=== PATIENT | male | born 1945 | race Caucasian/White ===

== ENCOUNTER 2016-11-02 09:45 | Emergency (ER) | payer OTHER ==
[2016-11-02 10:30] LABS: HEMOGLOBIN 13.8 gm/dl (14.0-17.5); RED BLOOD COUNT 4.96 M/UL (4.20-5.50); WHITE BLOOD COUNT 6.8 K/UL (4.5-11.0)
[2016-11-02 11:06] LABS: BUN/CREATININE RATIO 21 (0-10)
== END 2016-11-02 13:05 | disposition home or self-care (01) ==
LOC: ER1 09:45
PROVIDERS: Preventive Medicine Occupational Medicine
DX: I50.9 Heart failure, unspecified (principal)
CPT/HCPCS: 36415; 36600; 71010; 80053; 81001; 82550; 82553; 82803; 83874; 83880; 84484; 85025; 85610; 85730; 87040; 93005; 93970; 94664; 96361; 96374; 99285; J1940

== ENCOUNTER 2020-06-05 08:31 | Inpatient (IN) | payer MEDICARE ==
[~2020-06-05] VITALS: Ht 175.3 cm; Wt 104.5 kg
[~2020-06-05 08:31] MED LIST: ASPIRIN EC81 MG PO; ATORVASTATIN CA20 MG PO; BETAPACE 80MG T80 MG PO; COUMADIN5 MG PO; DISALCID500 MG PO; FEOSOL325 MG PO; FISH OIL 1,0001 EACH PO; GLUCOPHAGE1000 MG PO; GLUCOTROL 10 MG10 MG PO; GUAIFENESI100 MG/5 M PO; IMDUR ER TAB 3030 MG PO; LANTUS100 UNIT/1 SQ; LASIX40 MG PO; LOPRESSOR50 MG PO; NEURONTIN 400400 MG PO; ROBAXIN-750750 MG PO; SYMBICORT 80-10.2 GM INH; TYLENOL 500 MG500 MG PO; VITAMIN D31000 UNI1 PO
[2020-06-05 09:11] LABS: HEMOGLOBIN 12.2 gm/dl (14.0-17.5); RED BLOOD COUNT 4.37 M/UL (4.20-5.50); WHITE BLOOD COUNT 6.3 K/UL (4.5-11.0)
[2020-06-05 09:43] LABS: BUN/CREATININE RATIO 28 (0-10)
[2020-06-05] MEDS ORDERED: WARFARIN SODIU2.5 MG PO (10:54)
[2020-06-05] MEDS ORDERED: JANTOVEN5 MG PO (10:56)
[2020-06-05] MEDS ORDERED: ASCORBIC ACID500 MG PO (10:57)
[2020-06-05] MEDS ORDERED: LASIX20 MG PO (10:58)
[2020-06-05] MEDS ORDERED: ZYRTEC10 MG PO (10:58)
[2020-06-05] MEDS ORDERED: REFRESH OPTIVE1 EACH EYEBOTH (10:59)
[2020-06-05] MEDS ORDERED: ARTIFICIAL TEA1 EAC1 EYEBOTH (11:00)
[2020-06-06 03:10] LABS: HEMOGLOBIN 11.2 gm/dl (14.0-17.5); RED BLOOD COUNT 3.98 M/UL (4.20-5.50); WHITE BLOOD COUNT 5.1 K/UL (4.5-11.0)
[2020-06-06 03:50] LABS: BUN/CREATININE RATIO 37 (0-10)
[2020-06-06 18:28] LABS: HEMOGLOBIN 10.9 gm/dl (14.0-17.5); RED BLOOD COUNT 3.82 M/UL (4.20-5.50)
[2020-06-06 18:36] LABS: WHITE BLOOD COUNT 6.7 K/UL (4.5-11.0)
[2020-06-06 18:49] LABS: BUN/CREATININE RATIO 34 (0-10)
[2020-06-07 04:11] LABS: HEMOGLOBIN 8.7 gm/dl (14.0-17.5); RED BLOOD COUNT 3.15 M/UL (4.20-5.50); WHITE BLOOD COUNT 4.4 K/UL (4.5-11.0)
[2020-06-07 04:37] LABS: BUN/CREATININE RATIO 39 (0-10)
[2020-06-08 02:41] LABS: HEMOGLOBIN 7.8 gm/dl (14.0-17.5); WHITE BLOOD COUNT 4.3 K/UL (4.5-11.0)
[2020-06-08 02:56] LABS: RED BLOOD COUNT 2.77 M/UL (4.20-5.50)
--- NOTE | 2020-06-08 15:51 | NUR ---
ON FLOOR AND REQUEST TO HAVE ORDERS PLACED FOR CT AND VIT K
[2020-06-09 05:39] LABS: HEMOGLOBIN 7.7 gm/dl (14.0-17.5); RED BLOOD COUNT 2.71 M/UL (4.20-5.50); WHITE BLOOD COUNT 3.9 K/UL (4.5-11.0)
[2020-06-09 06:05] LABS: BUN/CREATININE RATIO 40 (0-10)
[2020-06-10 05:19] LABS: HEMOGLOBIN 9.3 gm/dl (14.0-17.5); RED BLOOD COUNT 3.35 M/UL (4.20-5.50); WHITE BLOOD COUNT 7.1 K/UL (4.5-11.0)
[2020-06-10 05:50] LABS: BUN/CREATININE RATIO 44 (0-10)
[2020-06-11 03:49] LABS: HEMOGLOBIN 8.5 gm/dl (14.0-17.5); WHITE BLOOD COUNT 5.9 K/UL (4.5-11.0)
[2020-06-11 03:53] LABS: RED BLOOD COUNT 2.93 M/UL (4.20-5.50)
[2020-06-11 04:16] LABS: BUN/CREATININE RATIO 39 (0-10)
[2020-06-12 03:15] LABS: HEMOGLOBIN 8.1 gm/dl (14.0-17.5); RED BLOOD COUNT 2.85 M/UL (4.20-5.50); WHITE BLOOD COUNT 6.2 K/UL (4.5-11.0)
[2020-06-12 03:39] LABS: BUN/CREATININE RATIO 43 (0-10)
[2020-06-12] MEDS ORDERED: CLOPIDOGREL75 MG PO (10:20)
[2020-06-12] MEDS ORDERED: ASPIRIN EC81 MG PO (10:21)
[2020-06-12] MEDS ORDERED: MEDROL4 MG PO (11:59)
[2020-10-02] MEDS ORDERED: LIPITOR80 MG PO (10:54)
[2020-10-02] MEDS ORDERED: COZAAR25 MG PO (11:33)
== END 2020-06-12 13:52 | disposition home or self-care (01) | DRG 246 ==
LOC: ER1 08:31 → PROG CARE 10:03 → CDU 10:03 → PROG CARE 10:03
PROVIDERS: Emergency Medicine; Family Medicine; Internal Medicine Cardiovascular Disease; Internal Medicine Interventional Cardiology; Physician Assistant Medical; ADMIT Internal Medicine Infectious Disease
PROC: 8E0ZXY6 Isolation (ICD-10-PCS; 2020-06-05)
PROC: 5A2204Z Restoration of Cardiac Rhythm, Single (ICD-10-PCS; principal; 2020-06-06)
PROC: 027034Z Dilation of Coronary Artery, One Artery with Drug-eluting Intraluminal Device, Percutaneous Approach (ICD-10-PCS; 2020-06-06)
PROC: 4A023N7 Measurement of Cardiac Sampling and Pressure, Left Heart, Percutaneous Approach (ICD-10-PCS; 2020-06-06)
PROC: B2111ZZ Fluoroscopy of Multiple Coronary Arteries using Low Osmolar Contrast (ICD-10-PCS; 2020-06-06)
PROC: 2W1 Placement, Anatomical Regions, Compression (ICD-10-PCS; 2020-06-06)
PROC: 30233K1 Transfusion of Nonautologous Frozen Plasma into Peripheral Vein, Percutaneous Approach (ICD-10-PCS; 2020-06-08)
PROC: 30233H1 Transfusion of Nonautologous Whole Blood into Peripheral Vein, Percutaneous Approach (ICD-10-PCS; 2020-06-09)
PROC: 5A09357 Assistance with Respiratory Ventilation, Less than 24 Consecutive Hours, Continuous Positive Airway Pressure (ICD-10-PCS; 2020-06-10)
DX: I21.4 Non-ST elevation (NSTEMI) myocardial infarction (principal); I50.23 Acute on chronic systolic (congestive) heart failure; U07.1 COVID-19; J12.82 Pneumonia due to coronavirus disease 2019; J96.21 Acute and chronic respiratory failure with hypoxia; D62 Acute posthemorrhagic anemia; I97.630 Postprocedural hematoma of a circulatory system organ or structure following a cardiac catheterization; I48.92 Unspecified atrial flutter; I48.0 Paroxysmal atrial fibrillation; I44.7 Left bundle-branch block, unspecified; R79.1 Abnormal coagulation profile; T45.515A Adverse effect of anticoagulants, initial encounter; Z79.01 Long term (current) use of anticoagulants; J44.9 Chronic obstructive pulmonary disease, unspecified; Z95.5 Presence of coronary angioplasty implant and graft; Y84.8 Other medical procedures as the cause of abnormal reaction of the patient, or of later complication, without mention of misadventure at the time of the procedure; Z79.84 Long term (current) use of oral hypoglycemic drugs; Z79.899 Other long term (current) drug therapy; Z87.891 Personal history of nicotine dependence; I25.10 Atherosclerotic heart disease of native coronary artery without angina pectoris; I08.0 Rheumatic disorders of both mitral and aortic valves; I27.20 Pulmonary hypertension, unspecified; E78.5 Hyperlipidemia, unspecified; Z98.49 Cataract extraction status, unspecified eye; Z96.1 Presence of intraocular lens; Z83.3 Family history of diabetes mellitus; E11.65 Type 2 diabetes mellitus with hyperglycemia; I11.0 Hypertensive heart disease with heart failure
CPT/HCPCS: 36415; 36430; 71045; 80048; 80053; 82550; 82553; 82962; 83605; 83735; 83874; 83880; 84100; 84439; 84443; 84484; 85018; 85025; 85027; 85347; 85610; 85730; 86850; 86900; 86901; 86920; 86927; 87040; 90471; 93005; 94640; 94660; 94664; 94760; 96365; 96366; 96367; 96368; 96372; 96375; 96376; 97116; 97162; 97166; 99152; 99153; 99285; C1725; C1751; C1760; C1769; C1874; C1887; C1894; C9600; G0378; J0456; J0696; J1100; J1160; J1644; J1650; J1742; J1940; J2250; J3010; J3430; J7030; J7040; J7050; P9016; P9017; Q9967; U0002; U0003

== ENCOUNTER → 2020-07-02 | Outpatient (CLI) | payer OTHER, MEDICARE ==
[~2020-07-02] MED LIST changes: +ARTIFICIAL TEA1 EAC1 EYEBOTH; +ASCORBIC ACID500 MG PO; +CLOPIDOGREL75 MG PO; +COZAAR25 MG PO; +ELIQUIS5 MG PO; +GABAPENTIN400 MG PO; +IPRAT-ALBUT 0.5-3 ML NEB; +ISOSORBIDE MONO30 MG PO; +JANTOVEN5 MG PO; +LASIX20 MG PO; +LIPITOR80 MG PO; +MEDROL4 MG PO; +REFRESH OPTIVE1 EACH EYEBOTH; +REFRESH TEARS15 ML OP; +ROBAXIN 750 MG750 MG PO; +VITAMIN D325 MCG PO; +WARFARIN SODIU2.5 MG PO; +ZYRTEC10 MG PO
== END ==
LOC: US 14:06
DX: R60.0 Localized edema (principal); L53.9 Erythematous condition, unspecified
CPT/HCPCS: 93926; 93971

== ENCOUNTER 2020-10-02 14:01 | Inpatient (IN) | payer MEDICARE, OTHER ==
[~2020-10-02] VITALS: Ht 175.3 cm; Wt 100.9 kg
[~2020-10-02 14:01] MED LIST changes: -ELIQUIS5 MG PO; -GABAPENTIN400 MG PO; -IPRAT-ALBUT 0.5-3 ML NEB; -ISOSORBIDE MONO30 MG PO; -REFRESH TEARS15 ML OP; -ROBAXIN 750 MG750 MG PO; -VITAMIN D325 MCG PO
[2020-10-02 15:19] LABS: HEMOGLOBIN 10.6 gm/dl (14.0-17.5); RED BLOOD COUNT 3.78 M/UL (4.20-5.50); WHITE BLOOD COUNT 6.5 K/UL (4.5-11.0)
[2020-10-02] MEDS ORDERED: VITAMIN D325 MCG PO (18:02)
[2020-10-02] MEDS ORDERED: GABAPENTIN400 MG PO (18:02)
[2020-10-02] MEDS ORDERED: ROBAXIN 750 MG750 MG PO (18:03)
[2020-10-02] MEDS ORDERED: ISOSORBIDE MONO30 MG PO (18:09)
[2020-10-02] MEDS ORDERED: REFRESH TEARS15 ML OP (18:13)
[2020-10-02] MEDS ORDERED: ELIQUIS5 MG PO (18:24)
[2020-10-03 02:46] LABS: HEMOGLOBIN 8.9 gm/dl (14.0-17.5); WHITE BLOOD COUNT 6.2 K/UL (4.5-11.0)
[2020-10-03 02:52] LABS: RED BLOOD COUNT 3.33 M/UL (4.20-5.50)
[2020-10-04 03:30] LABS: HEMOGLOBIN 9.1 gm/dl (14.0-17.5); RED BLOOD COUNT 3.32 M/UL (4.20-5.50); WHITE BLOOD COUNT 5.1 K/UL (4.5-11.0)
[2020-10-04] MEDS ORDERED: LASIX40 MG PO (14:22)
[2020-10-04] MEDS ORDERED: IPRAT-ALBUT 0.5-3 ML NEB (14:22)
== END 2020-10-04 17:00 | disposition home or self-care (01) | DRG 291 ==
LOC: ER1 14:01 → PROG CARE 16:37 → CDU 16:37 → PROG CARE 21:41
PROVIDERS: Preventive Medicine Occupational Medicine; ADMIT Internal Medicine
PROC: B24BZZ4 Ultrasonography of Heart with Aorta, Transesophageal (ICD-10-PCS; principal; 2020-10-03)
DX: I13.0 Hypertensive heart and chronic kidney disease with heart failure and stage 1 through stage 4 chronic kidney disease, or unspecified chronic kidney disease (principal); J96.21 Acute and chronic respiratory failure with hypoxia; G93.41 Metabolic encephalopathy; I50.33 Acute on chronic diastolic (congestive) heart failure; J96.02 Acute respiratory failure with hypercapnia; N17.9 Acute kidney failure, unspecified; J44.1 Chronic obstructive pulmonary disease with (acute) exacerbation; Z20.822 Contact with and (suspected) exposure to COVID-19; I48.0 Paroxysmal atrial fibrillation; I44.7 Left bundle-branch block, unspecified; I25.10 Atherosclerotic heart disease of native coronary artery without angina pectoris; N18.2 Chronic kidney disease, stage 2 (mild); I27.20 Pulmonary hypertension, unspecified; I35.0 Nonrheumatic aortic (valve) stenosis; I34.0 Nonrheumatic mitral (valve) insufficiency; E11.9 Type 2 diabetes mellitus without complications; Z79.4 Long term (current) use of insulin; Z95.5 Presence of coronary angioplasty implant and graft; Z79.01 Long term (current) use of anticoagulants; Z80.1 Family history of malignant neoplasm of trachea, bronchus and lung; Z82.49 Family history of ischemic heart disease and other diseases of the circulatory system; I25.2 Old myocardial infarction; Z86.16 Personal history of COVID-19
CPT/HCPCS: ECHO; 36415; 36600; 71045; 80048; 80053; 82009; 82140; 82550; 82553; 82803; 82962; 83605; 83874; 83880; 84439; 84443; 84484; 85025; 85652; 93005; 93306; 94640; 94660; 94664; 94760; 99285; J1205; J1940; J7030; U0002

== ENCOUNTER → 2020-11-03 | Outpatient (CLI) | payer MEDICARE, OTHER ==
[~2020-11-03] MED LIST changes: +ELIQUIS5 MG PO; +GABAPENTIN400 MG PO; +IPRAT-ALBUT 0.5-3 ML NEB; +ISOSORBIDE MONO30 MG PO; +REFRESH TEARS15 ML OP; +ROBAXIN 750 MG750 MG PO; +VITAMIN D325 MCG PO
== END ==
LOC: SLEEP 15:24
DX: R06.83 Snoring (principal); G47.33 Obstructive sleep apnea (adult) (pediatric); R09.02 Hypoxemia
CPT/HCPCS: 95810

== ENCOUNTER 2020-12-26 09:02 | Observation (INO) | payer MEDICARE, OTHER ==
[~2020-12-26] VITALS: Ht 175.3 cm; Wt 102.6 kg
[~2020-12-26 09:02] MED LIST changes: -ZYRTEC10 MG PO
[2020-12-26 09:41] LABS: HEMOGLOBIN 11.3 gm/dl (14.0-17.5); RED BLOOD COUNT 3.95 M/UL (4.20-5.50); WHITE BLOOD COUNT 6.2 K/UL (4.5-11.0)
[2020-12-26] MEDS ORDERED: CLARITIN10 MG PO (10:58)
[2020-12-26] MEDS ORDERED: VITAMIN D350 MCG PO (13:57)
[2020-12-26] MEDS ORDERED: LASIX TAB 20 MG20 MG PO (14:01)
[2020-12-26] MEDS ORDERED: GLUCOTROL 10 MG10 MG PO (14:02)
[2020-12-26] MEDS ORDERED: METFORMIN HCL1000 MG PO (14:05)
[2020-12-26] MEDS ORDERED: VENTOLIN HFA 66.7 GM INH (14:07)
[2020-12-26] MEDS ORDERED: ALBUTEROL2.5 MG/3 M NEB (15:01)
[2020-12-26] MEDS ORDERED: K-DUR TAB 10 M10 MEQ PO (15:04)
[2020-12-27 02:42] LABS: HEMOGLOBIN 10.7 gm/dl (14.0-17.5); RED BLOOD COUNT 3.86 M/UL (4.20-5.50)
[2020-12-28 03:44] LABS: HEMOGLOBIN 10.1 gm/dl (14.0-17.5); RED BLOOD COUNT 3.61 M/UL (4.20-5.50); WHITE BLOOD COUNT 6.4 K/UL (4.5-11.0)
[2020-12-28] MEDS ORDERED: IPRATROPIU0.2 MG/1 M NEB (09:02)
[2020-12-28] MEDS ORDERED: LEVALBUTER1.25 MG/3 NEB (09:02)
[2020-12-28] MEDS ORDERED: CARDIZEM 60MG T60 MG PO (09:05)
== END 2020-12-28 14:15 | disposition home or self-care (01) ==
LOC: ER1 09:02 → PROG CARE 11:24 → CDU 11:24 → PROG CARE 13:56
PROVIDERS: Emergency Medicine; Physician Assistant; ADMIT Internal Medicine
DX: I48.91 Unspecified atrial fibrillation (principal); R77.8 Other specified abnormalities of plasma proteins; N17.9 Acute kidney failure, unspecified; I11.0 Hypertensive heart disease with heart failure; I50.33 Acute on chronic diastolic (congestive) heart failure; J44.1 Chronic obstructive pulmonary disease with (acute) exacerbation; J96.11 Chronic respiratory failure with hypoxia; I25.10 Atherosclerotic heart disease of native coronary artery without angina pectoris; I44.7 Left bundle-branch block, unspecified; E11.9 Type 2 diabetes mellitus without complications; I25.2 Old myocardial infarction; I27.20 Pulmonary hypertension, unspecified; E78.5 Hyperlipidemia, unspecified; I08.0 Rheumatic disorders of both mitral and aortic valves; E66.01 Morbid (severe) obesity due to excess calories; M41.9 Scoliosis, unspecified; G47.33 Obstructive sleep apnea (adult) (pediatric); Z95.5 Presence of coronary angioplasty implant and graft; Z87.891 Personal history of nicotine dependence; Z99.81 Dependence on supplemental oxygen; Z99.89 Dependence on other enabling machines and devices; Z86.16 Personal history of COVID-19; Z79.01 Long term (current) use of anticoagulants; Z79.02 Long term (current) use of antithrombotics/antiplatelets; Z79.4 Long term (current) use of insulin; Z79.899 Other long term (current) drug therapy; Z20.822 Contact with and (suspected) exposure to COVID-19
CPT/HCPCS: 36415; 71045; 71046; 80048; 80053; 82550; 82553; 82962; 83605; 83735; 83874; 83880; 84100; 84439; 84443; 84484; 85025; 85610; 85730; 87040; 93005; 94640; 94760; 96374; 96375; 96376; 99285; G0378; J1940; J7040; U0002

== ENCOUNTER 2021-01-03 03:32 | Inpatient (IN) | payer MEDICARE, OTHER ==
[~2021-01-03] VITALS: Ht 177.8 cm; Wt 99.3 kg
[~2021-01-03 03:32] MED LIST changes: +ALBUTEROL2.5 MG/3 M NEB; +CARDIZEM 60MG T60 MG PO; +CLARITIN10 MG PO; +IPRATROPIU0.2 MG/1 M NEB; +K-DUR TAB 10 M10 MEQ PO; +LASIX TAB 20 MG20 MG PO; +LEVALBUTER1.25 MG/3 NEB; +METFORMIN HCL1000 MG PO; +VENTOLIN HFA 66.7 GM INH; +VITAMIN D350 MCG PO
[2021-01-03 04:11] LABS: RED BLOOD COUNT 4.09 M/UL (4.20-5.50); WHITE BLOOD COUNT 12.2 K/UL (4.5-11.0)
[2021-01-03 04:39] LABS: BUN/CREATININE RATIO 27 (0-10)
[2021-01-03 07:20] LABS: BUN/CREATININE RATIO 25 (0-10)
[2021-01-03] MEDS ORDERED: PLAVIX 75 MG TA75 MG PO (13:34)
[2021-01-03] MEDS ORDERED: CETIRIZINE HCL10 MG PO (15:48)
[2021-01-03] MEDS ORDERED: RESTORE PLUS1 EACH OP (15:52)
[2021-01-03] MEDS ORDERED: GLIPIZIDE10 MG PO (15:55)
[2021-01-03] MEDS ORDERED: METFORMIN HCL1000 MG PO (15:57)
[2021-01-04 05:56] LABS: HEMOGLOBIN 9.2 gm/dl (14.0-17.5); RED BLOOD COUNT 3.43 M/UL (4.20-5.50); WHITE BLOOD COUNT 8.4 K/UL (4.5-11.0)
--- NOTE | 2021-01-05 03:02 | NUR ---
0150-PROVIDING ORAL CARE TO PATIENT AND PATIENT BEGINS WAKING UP ON SEDATION. PATIENT O2 SAT DROPPED INTO 70'S RESPIRATORY NOTIFIED, PATIENT WAS SUCTIONED AND CHECKED FOR ANY EXCESS MUCUS BY RESPIRATORY. PATIENT BUMPED UP TO 100% ON VENT. PATIENT HEART RATE SPIKED UP TO 150'S SINUS TACH. NOTIFIED DR THEODORE. DR THEODORE CAME TO BEDSIDE AND PATIENTS HEART RATE HAD STABALIZED INTO THE 60'S BUT PEEK PRESSURE WAS STILL 40'S SO A CHEST XRAY WAS DONE, LASIX, A BREATHING TREATMENT, AND EKG WERE DONE WELL. PATIENT VITALS STABLE AT THIS TIME PEEK PRESSURE IS 36 AND PATIENT RESTING. WCM AND NOTIFY MD NEEDED
[2021-01-05 05:24] LABS: HEMOGLOBIN 9.9 gm/dl (14.0-17.5); RED BLOOD COUNT 3.75 M/UL (4.20-5.50); WHITE BLOOD COUNT 8.6 K/UL (4.5-11.0)
[2021-01-06 05:44] LABS: HEMOGLOBIN 9.9 gm/dl (14.0-17.5); RED BLOOD COUNT 3.62 M/UL (4.20-5.50); WHITE BLOOD COUNT 8.8 K/UL (4.5-11.0)
--- NOTE | 2021-01-06 15:08 | NUR ---
1200 CODE STATUS DISCUSSED WITH PER DR. MITCHELL. PER THE PATIENTS WISHES DISCUSSED BY HIS , CODE STATUS CHANGED TO DNR AT THIS TIME. SEE PULMONARY PROGRESS NOTES.
[2021-01-07 04:39] LABS: HEMOGLOBIN 10.2 gm/dl (14.0-17.5); RED BLOOD COUNT 3.84 M/UL (4.20-5.50); WHITE BLOOD COUNT 7.9 K/UL (4.5-11.0)
[2021-01-08 04:37] LABS: HEMOGLOBIN 11.9 gm/dl (14.0-17.5)
[2021-01-08 04:40] LABS: RED BLOOD COUNT 4.28 M/UL (4.20-5.50); WHITE BLOOD COUNT 9.9 K/UL (4.5-11.0)
[2021-01-09 04:59] LABS: HEMOGLOBIN 12.6 gm/dl (14.0-17.5); RED BLOOD COUNT 4.5 M/UL (4.20-5.50)
[2021-01-10 03:01] LABS: HEMOGLOBIN 12.8 gm/dl (14.0-17.5); RED BLOOD COUNT 4.8 M/UL (4.20-5.50); WHITE BLOOD COUNT 18.3 K/UL (4.5-11.0)
[2021-01-10 15:50] LABS: ACINETOBACTER BAUMANNII Not Detected (Negative); CANDIDA ALBICANS Not Detected (Negative); CANDIDA KRUSEI Not Detected (Negative); CANDIDA TROPICALIS Not Detected (Negative); ENTEROCOCCUS Not Detected (Negative); ESCHERICHIA COLI Not Detected (Negative); HAEMOPHILUS INFLUENZAE Not Detected (Negative); KLEBSIELLA OXYTOCA Not Detected (Negative); KLEBSIELLA PNEUMONIAE Not Detected (Negative); KPC-CARBAPENEM-RESISTANCE GENE Not Detected (Negative); PROTEUS Not Detected (Negative); PSEUDOMONAS AERUGINOSA Not Detected (Negative); SERRATIA MARCESANS Not Detected (Negative); STAPHYLOCOCCUS AUREUS Not Detected (Negative); STREP AGALACTIAE (GROUP B) Not Detected (Negative); STREP PYOGENES (GROUP A) Not Detected (Negative); STREPTOCOCCUS Not Detected (Negative); vanA/B (VANCOMYCIN RESIST GENE Not Detected (Negative)
[2021-01-10 17:10] LABS: mecA (METHICILLIN RESIST GENE DETECTED (Negative)
[2021-01-10 17:11] LABS: STAPHYLOCOCCUS DETECTED (Negative)
[2021-01-11 03:12] LABS: HEMOGLOBIN 12.4 gm/dl (14.0-17.5); RED BLOOD COUNT 4.42 M/UL (4.20-5.50)
[2021-01-11 03:20] LABS: WHITE BLOOD COUNT 11.3 K/UL (4.5-11.0)
[2021-01-12 05:09] LABS: HEMOGLOBIN 12.1 gm/dl (14.0-17.5); RED BLOOD COUNT 4.37 M/UL (4.20-5.50); WHITE BLOOD COUNT 10.2 K/UL (4.5-11.0)
[2021-01-13 04:26] LABS: HEMOGLOBIN 12.7 gm/dl (14.0-17.5); RED BLOOD COUNT 4.58 M/UL (4.20-5.50)
[2021-01-13 04:27] LABS: WHITE BLOOD COUNT 12.8 K/UL (4.5-11.0)
--- NOTE | 2021-01-14 02:55 | NUR ---
PLACED ICE UNDER ARMPITS AND BEHIND KNEES D/T HIGH FEVER OF 103. MD AWARE OF FEVER.
--- NOTE | 2021-01-14 22:16 | NUR ---
PLACED ICE BAGS UNDER BOTH ARMS D/T FEVER INCREASING. GAVE TYLENOL.
[2021-01-15 03:10] LABS: HEMOGLOBIN 12.2 gm/dl (14.0-17.5); RED BLOOD COUNT 4.37 M/UL (4.20-5.50); WHITE BLOOD COUNT 14.2 K/UL (4.5-11.0)
[2021-01-16 05:45] LABS: HEMOGLOBIN 10.9 gm/dl (14.0-17.5); RED BLOOD COUNT 4.01 M/UL (4.20-5.50)
--- NOTE | 2021-01-17 01:46 | NUR ---
AT [facility] AT [facility]. SHE IS UP TO DATE ON LATEST CONDITION OF PATIENT. MD ASSESSED PATIENT AND SPOKE TO THE THE REGARDING HIS CONDITION. EXPLAINED WHAT WE WERE DOING TO INCREASE HIS BLOOD PRESSURE AND WHY. EXPLAINED WHY FLUIDS WERE BEING GIVEN AND WHY LEVOPHED WAS STARTED. THE WAS OKAY WITH STARTING LEVOPHED AND THE FLUIDS.
[2021-01-17 03:04] LABS: HEMOGLOBIN 10.4 gm/dl (14.0-17.5); RED BLOOD COUNT 3.69 M/UL (4.20-5.50); WHITE BLOOD COUNT 18.4 K/UL (4.5-11.0)
--- NOTE | 2021-01-17 13:47 | NUR ---
HOME NOTIFIED. TIME OF [id number]
== END 2021-01-17 15:12 | disposition expired | DRG 870 ==
LOC: ER1 03:32 → PROG CARE 08:35 → CDU 08:35 → CCU 08:35 → PROG CARE 01-09 19:49
PROVIDERS: Family Medicine; Internal Medicine; Internal Medicine Nephrology; Internal Medicine Pulmonary Disease; ADMIT Internal Medicine Infectious Disease
PROC: B24BZZ4 Ultrasonography of Heart with Aorta, Transesophageal (ICD-10-PCS; principal; 2021-01-03)
PROC: 5A1955Z Respiratory Ventilation, Greater than 96 Consecutive Hours (ICD-10-PCS; 2021-01-03)
PROC: 0BH17EZ Insertion of Endotracheal Airway into Trachea, Via Natural or Artificial Opening (ICD-10-PCS; 2021-01-03)
PROC: 3E033XZ Introduction of Vasopressor into Peripheral Vein, Percutaneous Approach (ICD-10-PCS; 2021-01-03)
PROC: 5A09457 Assistance with Respiratory Ventilation, 24-96 Consecutive Hours, Continuous Positive Airway Pressure (ICD-10-PCS; 2021-01-14)
PROC: 5A0935A Assistance with Respiratory Ventilation, Less than 24 Consecutive Hours, High Flow/Velocity Cannula (ICD-10-PCS; 2021-01-14)
DX: A41.9 Sepsis, unspecified organism (principal); J96.21 Acute and chronic respiratory failure with hypoxia; J96.22 Acute and chronic respiratory failure with hypercapnia; R65.21 Severe sepsis with septic shock; J18.9 Pneumonia, unspecified organism; Z20.822 Contact with and (suspected) exposure to COVID-19; I50.33 Acute on chronic diastolic (congestive) heart failure; I63.40 Cerebral infarction due to embolism of unspecified cerebral artery; I13.0 Hypertensive heart and chronic kidney disease with heart failure and stage 1 through stage 4 chronic kidney disease, or unspecified chronic kidney disease; N17.9 Acute kidney failure, unspecified; E87.1 Hypo-osmolality and hyponatremia; G81.91 Hemiplegia, unspecified affecting right dominant side; R47.01 Aphasia; E66.2 Morbid (severe) obesity with alveolar hypoventilation; J44.0 Chronic obstructive pulmonary disease with (acute) lower respiratory infection; E87.0 Hyperosmolality and hypernatremia; I47.2 Ventricular tachycardia; J44.1 Chronic obstructive pulmonary disease with (acute) exacerbation; E87.4 Mixed disorder of acid-base balance; G93.40 Encephalopathy, unspecified; N18.30 Chronic kidney disease, stage 3 unspecified; R13.10 Dysphagia, unspecified; E11.22 Type 2 diabetes mellitus with diabetic chronic kidney disease; R53.81 Other malaise; I25.10 Atherosclerotic heart disease of native coronary artery without angina pectoris; I44.7 Left bundle-branch block, unspecified; I35.0 Nonrheumatic aortic (valve) stenosis; E11.65 Type 2 diabetes mellitus with hyperglycemia; I45.81 Long QT syndrome; I07.1 Rheumatic tricuspid insufficiency; I27.20 Pulmonary hypertension, unspecified; I48.0 Paroxysmal atrial fibrillation; E78.5 Hyperlipidemia, unspecified; F17.210 Nicotine dependence, cigarettes, uncomplicated; Z95.5 Presence of coronary angioplasty implant and graft; Z79.01 Long term (current) use of anticoagulants; Z98.42 Cataract extraction status, left eye; Z86.16 Personal history of COVID-19; Z80.1 Family history of malignant neoplasm of trachea, bronchus and lung; Z82.49 Family history of ischemic heart disease and other diseases of the circulatory system; Z79.82 Long term (current) use of aspirin; Z68.31 Body mass index [BMI] 31.0-31.9, adult; I25.2 Old myocardial infarction
CPT/HCPCS: ECHO; 31500; 36415; 36600; 70450; 71045; 74018; 80048; 80053; 80202; 81001; 82533; 82550; 82553; 82570; 82803; 82962; 83605; 83735; 83874; 83880; 84132; 84133; 84156; 84300; 84439; 84443; 84484; 85025; 85379; 85610; 86140; 87040; 87070; 87077; 87086; 87150; 87186; 87205; 92526; 92610; 93005; 93306; 93880; 94002; 94003; 94640; 94660; 94664; 94760; 96374; 96375; 99285; A6212; J1120; J1160; J1205; J1720; J1940; J2020; J2185; J2250; J2543; J2920; J2930; J3370; J3480; J7050; J7060; J7070; Q9967; U0002